=== PATIENT | male | born 1950 | race Caucasian/White ===

== ENCOUNTER 2016-12-06 07:10 | Day surgery (SDC) | payer MEDICARE, BC ==
[2016-12-06] MEDS ORDERED: EPHEDRINE SULFATE 50 MG/ML ML IV ONE (13:16)
[2016-12-06] MEDS ORDERED: MIDAZOLAM HCL 2MG/2ML VIAL IV ONE (13:16)
[2016-12-06] MEDS ORDERED: PROPOFOL 10 MG/ML VIAL IV ONE (13:16)
[2016-12-06] MEDS ORDERED: LIDOCAINE 2% MDV (20MG/ML) 20ML VIAL IV ONE (13:16)
--- NOTE | 2016-12-11 15:52 | Operative Note ---
DATE OF SURGERY: 12/06/2016 OPERATION: COLONOSCOPY with cold snare polypectomy x2, hot snare polypectomy x1, and hemoclip application x3. PREOPERATIVE DIAGNOSIS: History of colon polyps, last exam approximately 10 years ago. POSTOPERATIVE DIAGNOSES: 1. Transverse colon polyps. 2. Hypertrophied anal papillae. PROCEDURE: After informed consent was obtained from the patient, he was placed in the left lateral decubitus position in the endoscopy suite, sedated and monitored by the department of anesthesia. Digital rectal exam revealed no palpable mass. A well-lubricated [id number] colonoscope was inserted into the rectum and advanced to the cecum. Preparation quality was good. The ileocecal valve, appendiceal orifice, and ascending colon were unremarkable. In the transverse colon, there were 3 polyps. The first polyp was approximately 6 mm in diameter removed with a cold snare. Minimal bleeding was noted at the site. The second polyp was a sessile polyp adjacent to a previously placed tattoo. This was removed with polypectomy snare and ERBE Endocut current. There was a scant amount of bleeding at the site but the polypectomy defect was closed with 2 hemoclips for wound closure purposes. Photograph was taken after the clips had been applied. There was another polyp just distal to this tattoo which was approximately 8 mm in diameter and removed with a polypectomy snare. No cautery was used at this site. A rotatable clip was placed to this site for wound closure purposes. There was a small amount of bleeding at the site but it ceased after the clip was applied. The areas were all rinsed. No persistent bleeding was noted. The remainder of the transverse colon, descending colon, and sigmoid colon as well as rectum were unremarkable. J-turn views of the anorectum revealed hypertrophied anal papillae. The endoscope was straightened, the rectal ampulla deflated, and the endoscope was removed. RECOMMENDATIONS: The patient should follow a soft, low-fiber diet for the next 2 weeks. I recommend a repeat exam in most likely 1 year with the final determination based on tissue histology. As always, thank you for allowing me to participate in the healthcare of your patients. CC: DO GITA Rosenberg
== END 2016-12-06 09:25 | disposition home or self-care (01) ==
LOC: HOP 07:10
PROVIDERS: ATTEND Internal Medicine Gastroenterology
DX: Z12.11 Encounter for screening for malignant neoplasm of colon (principal); D12.3 Benign neoplasm of transverse colon; K62.89 Other specified diseases of anus and rectum; I10 Essential (primary) hypertension; F17.210 Nicotine dependence, cigarettes, uncomplicated; I25.2 Old myocardial infarction; Z79.02 Long term (current) use of antithrombotics/antiplatelets

== ENCOUNTER 2018-09-16 18:13 | Emergency (ER) | payer MEDICARE, BC ==
[2018-09-16] MEDS ORDERED: ASPIRIN 81 MG CHEWABLE TABLET PO ONE (18:14)
--- NOTE | 2018-09-16 18:26 | Emergency Department Record ---
History of Present Illness - General Chief Complaint: Rapid heartbeat Stated Complaint: PALPATATIONS Time Seen by Provider: 09/16/18 18:13 Source: Patient Mode of Arrival: Ambulatory Limitations: No limitations - History of Present Illness Initial Comments: 68 yo male presents to ED for evaluation of palpitations that began this morning. Patient reports associated chest discomfort symptoms, reports previous VT x 2. Patient also reports increased forgetfullness this morning, reports he went to the lumbar yard and forgot what he was there for. Patient also reports a history of daily alcohol use. Patient denies numbness, tingling , or focal weakness on examination. MD Complaint: Palpitations Onset/Timin -: Days(s) Associated Symptoms: Denies other symptoms - Related Data Allergies Allergy/AdvReac Type Severity Reaction Status Date / Time No Known Allergies Allergy Unverified 09/16/18 17:52 Review of Systems Constitutional: Denies: Chills, Fever, Malaise, Night sweats Eyes: Denies: Eye discharge, Eye pain ENT: Denies: Congestion, Ear pain, Epistaxis Respiratory: Denies: Cough, Dyspnea Cardiovascular: Reports: Chest pain, Palpitations. Denies: Dyspnea on exertion Endocrine: Denies: Fatigue, Heat or cold intolerance Gastrointestinal: Denies: Abdominal pain, Nausea, Vomiting Genitourinary: Denies: Incontinence, Retention Musculoskeletal: Denies: Arthralgia, Back pain Skin: Denies: Bruising, Change in color Neurological: Reports: Confusion. Denies: Abnormal gait, Headache, Seizure Psychiatric: Denies: Anxiety Hematological/Lymphatic: Denies: Anemia, Blood Clots Past Medical History - SOCIAL HISTORY Smoking Status: Current every day smoker - RESPIRATORY Hx Respiratory Disorders: Yes Hx COPD: Yes Hx Pneumonia: Yes - CARDIOVASCULAR Hx Cardio Disorders: Yes Hx Abnormal EKG: Yes Hx Cardiac Cath: Yes Hx Chest Pain: Yes Hx Heart Attack: Yes Hx Hypertension: Yes Hx Coronary Stent: Yes - NEURO Hx Neuro Disorders: No - GI Hx GI Disorders: No - Hx Genitourinary Disorders: Yes Hx Bladder Problem: Yes Hx Prostate Problems: Yes - ENDOCRINE Hx Endocrine Disorders: No - MUSCULOSKELETAL Hx Musculoskeletal Disorders: Yes Hx Arthritis: Yes - PSYCH Hx Psych Problems: Yes Hx Depression: Yes - HEMATOLOGY/ONCOLOGY Hx Hematology/Oncology Disorders: No Family Medical History Hx Heart Disease: Father Physical Exam - General General Appearance: Alert, Oriented x3, Cooperative, Mild distress, Other ( Patient smells of alcohol on examination, answers all questions appropriately on examination.) Limitations: No limitations - Head Head exam: Atraumatic, Normocephalic, Normal inspection Head exam detail: negative: Abrasion, Contusion, Tanner's sign, General tenderness, Hematoma, Laceration - Eye Eye exam: Normal appearance. negative: Conjunctival injection, Periorbital swelling, Periorbital tenderness, Scleral icterus - ENT Ear exam: negative: Auricular hematoma, Auricular trauma Nasal Exam: negative: Active bleeding, Discharge, Dried blood, Foreign body Mouth exam: negative: Drooling, Laceration, Muffled voice, Tongue elevation - Neck Neck exam: Normal inspection. negative: Meningismus, Tenderness - Respiratory Respiratory exam: Normal lung sounds bilaterally. negative: Rales, Respiratory distress, Rhonchi, Stridor - Cardiovascular Cardiovascular Exam: Regular rate, Normal rhythm, Normal heart sounds Peripheral Pulses: 3+: Radial (R), Radial (L), Dorsalis Pedis (R), Dorsalis Pedis (L) - GI/Abdominal GI/Abdominal exam: Soft. negative: Rebound, Rigid, Tenderness - Rectal Rectal exam: Deferred - exam: Deferred - Extremities Extremities exam: Normal inspection. negative: Pedal edema, Tenderness - Back Back exam: Denies: CVA tenderness (R), CVA tenderness (L) - Neurological Neurological exam: Alert, Normal gait, Oriented X3 - Psychiatric Psychiatric exam: Normal affect, Normal mood - Skin Skin exam: Normal color. negative: Abrasion Type of lesion: negative: abrasion Course - Reevaluation(s) Reevaluation #1: 09/16/18 18:25 EKG: NSR 82 LAD, IVCD No acute ST-T wave changes are present. Reevaluation #2: 09/16/18 18:51 Laboratory studies were reviewed: Alcohol 0.04 AG 19 Labs are otherwise grossly unremarkable for an acute process. Reevaluation #3: 09/16/18 19:00 Patient and his SO were updated on all results. I discussed admitting the patient for further evaluation to exclude abnormal heart rhythm and damage to the heart. Following discussion with the patient regarding admission, patient reports that he wants to leave [place] at this time. Risks of , permanent impairment, or worsening of their current condition were discussed as well as the benefit of admission for further evaluation of their presenting symptoms to exclude heart attack or abnormal heart rhythm. Patient verbalizes understanding of all risks and benefits, desires to leave [facility] despite these risks. Based on my examination, the patient is alert, oriented, and answers all questions appropriately. Patient appears to have the capacity to make rational decisions based on my examination. Patients SO was present for the duration of our discussion as well. Patient was encouraged to return to the ED immediately if they change their mind about treatment and want to be re- evaluated. Medical Decision Making - Lab Data Result diagrams: 09/16/18 18:20 09/16/18 18:20 Disposition Disposition: Discharge Clinical Impression: Palpitations Disposition: Against Medical Advice Condition: (2) Stable Instructions: Heart Palpitations (ED) Additional Instructions: Return to ED if your symptoms worsen or if you have any concerns. Follow-up with your Dr. Cerda in 1-3 days as directed. Forms: Patient Portal Access Time of Disposition: 18:59 Quality - Quality Measures Quality Measures: N/A - Blood Pressure Screening Does Patient Have Any of the Following: Active Dx of HTN Blood Pressure Classification: Hypertensive Reading Systolic Measurement: 148 Diastolic Measurement: 79 Screening for High Blood Pressure: Patient Exclusion, Hx of HTN [G9744]
[2018-09-16 18:29] LABS: BASO % 0.5 % (0-6); EOS % 2.3 % (0-6); GRAN % 69.3 % (47-80); HEMATOCRIT 44.2 % (42.0-52.0); HEMOGLOBIN 15.9 gm/dl (14.0-18.0); LYMPH % 14.9 % (16-45); MEAN CELL VOLUME 96.9 fl (81-97); MEAN CORPUSCULAR HEMOGLOBIN 34.9 pg (27-33); MEAN PLATELET VOLUME 8.6 fl (7.4-10.4); PLATELET COUNT 223 K/uL (130-400); RED BLOOD COUNT 4.56 M/uL (4.40-5.70); RED CELL DISTRIBUTION WIDTH 12.3 % (11.5-14.5); WHITE BLOOD COUNT W/O DIFF 6.6 K/uL (4.2-12.2)
[2018-09-16 18:41] LABS: BLOOD UREA NITROGEN 5 mg/dL (8-23); CREATININE 0.5 mg/dL (0.7-1.2); EST GLOMERULAR FILTRATION RATE > 60 mL/min; TOTAL PROTEIN 7.6 g/dL (6.6-8.7)
[2018-09-16 18:43] LABS: GLUCOSE,RANDOM 85 mg/dL (74-109)
[2018-09-16 18:46] LABS: ALB/GLOB RATIO 1.6 (1.1-1.8); ALBUMIN 4.7 g/dL (4.0-5.0); ALKALINE PHOSPHATASE 87 U/L (55-149); ALT/SGPT 26 U/L (<41); AST/SGOT 27 U/L (10.0-50.0)
== END 2018-09-16 19:08 | disposition left against medical advice (07) ==
LOC: ER 18:13
DX: R00.2 Palpitations (principal); I10 Essential (primary) hypertension; J44.9 Chronic obstructive pulmonary disease, unspecified; I25.2 Old myocardial infarction; F17.210 Nicotine dependence, cigarettes, uncomplicated
CPT/HCPCS: 99284 ×2; 82140; 85025; 80053; 84484; 93005; 93010; G0480; 80320